=== PATIENT | female | born 1985 | race Caucasian/White ===

== ENCOUNTER 2016-04-20 12:13 | Inpatient (IN) ==
[2016-04-20] MEDS ORDERED: Ringers Solution, Lactated 1,000 ML ONE ×2 (13:08→16:19)
[2016-04-20 13:12] LABS: Bilirubin,Urine Negative (Negative); Blood,Urine Negative (Negative); Clarity,Urine Cloudy (Clear); Color,Urine Dark Yellow (Yellow); Glucose,Urine (UA) Normal (Normal); Ketones,Urine Negative (Negative); Leukocyte Esterase,Urine Moderate (Negative); Nitrite,Urine Negative (Negative); Protein,Urine Trace mg/dL (Neg-Trace); Specific Gravity,Urine 1.021 (1.010-1.025); Urobilinogen,Urine Normal (Normal)
[2016-04-20] MEDS ORDERED: Ringers Solution, Lactated 500 ML IVC ONE (13:14)
[2016-04-20 13:15] LABS: Bacteria,Urine Moderate per hpf (None-Few); Hyaline Casts,Urine None Seen per lpf (None-Few); Squamous Epithelial Cell,Urine Many per lpf (None-Few)
[2016-04-20] MEDS ORDERED: Ringers Solution, Lactated 1,000 ML IVC SCH ×2 (13:15→15:45)
[2016-04-20 13:25] LABS: RBC,Urine 0-3 per hpf (0-3)
--- NOTE | 2016-04-20 14:15 | OB/GYN Progress Note ---
Date of Encounter: 04/20/16 Time of Encounter: 13:11 - Assessment and Plan (1) 33 weeks gestation of Current Visit: Yes Status: Chronic (2) Dichorionic diamniotic twin in third trimester Current Visit: Yes Status: Acute (3) Non-reassuring electronic monitoring tracing Current Visit: No Status: Acute IV hydration, NPO, intrauterine resuscitation. Patient had non reactive NST earlier this week with BPP 8/8 on both twins on 04/18/16. Prolonged monitoring. Subjective - Subjective Principal diagnosis: contractions and decreased movement Interval history: 30 year old G6 P 5-0-0-5 at 33 2/7 weeks presented to labor and delivery complaining of contractions, not very strong, and decreased movement x 2. She denies any vaginal bleeding or leaking fluid. She is being followed by Dr.Nnoli brown and MFM @ [facility]. She has a di/di twin complicated by discordance and abnormal umbilical artery dopplers in twin A. She is due to be seen at [facility] tomorrow. She did receive steroids at [facility] on 04/12 and 04/13 in anticipation of a delivery. Antepartum ROS: contractions, no loss of fluid, no vaginal bleeding, no movement normal Objective - Vital Signs Vital Signs: Intake and Output 04/19/16 04/20/16 04/20/16 23:59 07:59 15:59 Other: Weight 88.5 kg Patient Weight 04/20/16 23:59 Weight 88.5 kg - Exam FHR comments: baseline A 155 with occasional late deceleration noted following contractions baseline B 150 moderate variablity, no decelerations contractions q 3-4 minutes Abdomen: Present: soft, gravid Cervical dilation: closed Cervix effacement: thick - Labs Labs: Abnormal lab results Urine Clarity Cloudy (Clear) A 04/20/16 12:50 Ur Leukocyte Esterase Moderate (Negative) H 04/20/16 12:50 Urine Microscopic WBC 5-15 per hpf (0-3) H 04/20/16 12:50 Ur Squamous Epith Cells Many per lpf (None-Few) H 04/20/16 12:50 Urine Bacteria Moderate per hpf (None-Few) H 04/20/16 12:50 Ur Culture Indicated? YES (NO) A 04/20/16 12:50 - Allied health notes Allied health notes reviewed: nursing
--- NOTE | 2016-04-20 15:31 | OB/GYN History & Physical ---
Date of Encounter: 04/20/16 Time of Encounter: 15:00 Assessment and Plan (1) 33 weeks gestation of Current visit: Yes Status: Chronic (2) Dichorionic diamniotic twin in third trimester Current visit: Yes Status: Acute (3) Non-reassuring electronic monitoring tracing Current visit: No Status: Acute Proceed with section. Informed consent obtained History of Present Illness Chief complaint: contractions HPI: 30 year old G6 P 5-0-0-5 at 33 2/7 weeks presented to labor and delivery complaining of contractions, not very strong, and decreased movement x 2. She denies any vaginal bleeding or leaking fluid. She is being followed by locally and MFM @ [facility]. She has a di/di twin complicated by discordance and abnormal umbilical artery dopplers in twin A. Strip reviewed with Dr. Elis Arguelles and recommends delivery here. Infants were breech and transverse on ultrasound Monday. Past Med Surg Social Fam HX - Past Medical History Source: patient Medical history: no medical history Psychiatric history: no psych history - Past Surgical History Surgical History: no surgical history, other - Social History Smoking Status: Former smoker Smokeless Tobacco Status: No Alcohol use: none Drug use: none - Family History Mother Name: edwar montana Age: 51 Family Member Ethnicity: Non- Living Status: Still Living Hx Family Cardiac Disorders: No Hx Family Respiratory Disorders: No Hx Family Cancer: No Hx Family GI Disorders: No Hx Family Genitourinary Disorders: No Hx Family Endocrine Disorder: No Hx Family Musculoskeletal Disorders: No Hx Family Neuromuscular Disorders: No Hx Family Neurologic Disorders: No Hx Family HEENT Disorders: No Hx Family Autoimmune Disorders: No Hx Family Reproductive Disorders: No Hx Family Psychosocial Disorders: No Hx Family Medical Disorders: Yes (pt's mother had hx blood clots after delivery of child and has had cervical) Obstetrical History - Pregnancies : 6 Para: 5 Livin Medications and Allergies Ferrous Sulfate [Iron] 325 mg PO BIDWM #60 capsule.er 04/12/16 [Rx] Pnv #78/Iron Asp Gly/FA#1/Dha [Prenate Dha Softgel] 1 each PO DAILY #90 capsule 04/12/16 [Rx] Allergies Cinnamon Allergy (Verified 04/20/16 12:44) Swelling of Lip/Tongue/Throat Review of System OB All systems PM: reviewed and no additional remarkable complaints except as stated Exam - Constitutional Constitutional: well developed, well nourished, no acute distress - HEENT HEENT: EOMI, Mucus Membranes Moist - Lungs Respiratory exam: CTAB - Cardiovascular Cardiovascular exam: RRR - Abdomen Abdomen: Present: bowel sounds normal, gravid, non tender - Cervix Dilation: 0 Effacement: 0 Results Abnormal lab results Urine Clarity Cloudy (Clear) A 04/20/16 12:50 Ur Leukocyte Esterase Moderate (Negative) H 04/20/16 12:50 Urine Microscopic WBC 5-15 per hpf (0-3) H 04/20/16 12:50 Ur Squamous Epith Cells Many per lpf (None-Few) H 04/20/16 12:50 Urine Bacteria Moderate per hpf (None-Few) H 04/20/16 12:50 Ur Culture Indicated? YES (NO) A 04/20/16 12:50 All other labs normal. - VTE Reasons for not Prescribing Prophylaxis: Treatment not Indicated - Low risk for VTE
--- NOTE | 2016-04-20 15:33 | Anesthesia Evaluation PreOp ---
Date of Encounter: 04/20/16 Time of Encounter: 15:31 - Past History Planned Operation: csection Cardiac History: Denies any Significant Hx Pulmonary History: Former smoker (1/2 pack per day, quit 7 months ago) [employer] History: Denies Any Significant HX Other Medical History: Denies Any Significant HX Anesthesia History: No Prior Anesthetic Complications, Past Anesthesia (right arm fracture) : Yes (33 plus 2, ) Alcohol Use: none Drug use: none Medications and Allergies Ferrous Sulfate [Iron] 325 mg PO BIDWM #60 capsule.er 04/12/16 [Rx] Pnv #78/Iron Asp Gly/FA#1/Dha [Prenate Dha Softgel] 1 each PO DAILY #90 capsule 04/12/16 [Rx] Allergies Cinnamon Allergy (Verified 04/20/16 12:44) Swelling of Lip/Tongue/Throat - Meds/Allergy Pre-op Review Medications Reviewed: Yes Allergies Reviewed: Yes Beta Blockers on Current Med List: No Anesthesia Exam O2 Sat Height 1.55 m Height 1.55 m Weight 88.5 kg Weight 88.5 kg bp 130/68 hr 97 Height: 61 Weight: 85 NPO (# of Hours): 0800 frosted flakes, 150ml 2 hrs - HEENT Pupil (Motor): Pupils equal Mallampati: II Teeth: Poor dentition Oral Opening: Greater than 3 - [employer] LOC: Oriented [employer] Motor: Normal RUE, Normal LUE, Normal RLE, Normal LLE, Normal Face [employer] Sensory: Normal: RUE, LUE, RLE, LLE, Face - Cardiac Rhythm: Regular Murmur: None JVD: No Carotid Bruit: No - Pulmonary Breath Sounds: bilateral Clear Respiratory Effort: Symmetrical Anesthesia Assess/Plan ASA Score: 2 Modified Sonu Scale for Level of Consciousness: Cooperative, oriented, and tranquil Anesthetic Plan: Regional Monitoring Plan: Standard Monitors Recovery Plan: PACU
[2016-04-20] MEDS ORDERED: Famotidine 20 MG/2 ML VIAL IVP ONE ×2 (15:36→20:10)
[2016-04-20] MEDS ORDERED: Metoclopramide 10 MG/2 ML VIAL IVP ONE (15:36)
[2016-04-20] MEDS ORDERED: Ringers Solution, Lactated 1,000 ML IVC ONE (15:36)
[2016-04-20] MEDS ORDERED: CeFAZolin Pre 2,000 MG/100 ML 2,000 MG/100 ML BAG IVPB ONE (15:36)
[2016-04-20] MEDS ORDERED: *HR* Propofol 200 MG/20 ML VIAL IVP ONE (15:42)
[2016-04-20] MEDS ORDERED: *HR* Morphine Sulfate/PF 5 MG/10 ML AMPUL ONE (15:42)
[2016-04-20] MEDS ORDERED: *HR* FentaNYL (PF) 100 MCG/2 ML VIAL ONE (15:42)
[2016-04-20] MEDS ORDERED: Ondansetron 4 MG/2 ML VIAL ONE (16:05)
[2016-04-20] MEDS ORDERED: *HR* HYDROmorphone (PF) 1 MG/ML SYRINGE ONE (16:05)
[2016-04-20] MEDS ORDERED: Dexamethasone 4 MG/ML VIAL ONE (16:05)
[2016-04-20] MEDS ORDERED: ROPIVACAINE HCL/PF 0.5% 30 ML VIAL ONE (16:11)
[2016-04-20] MEDS ORDERED: Acetaminophen IV 1,000 MG/100 ML INFUS..BTL IVPB ONE (16:13)
[2016-04-20] MEDS ORDERED: *HR* Oxytocin 10 UNIT/ML VIAL IM ONE (16:20)
[2016-04-20] MEDS ORDERED: Oxytocin 20 units/ LR 1000 mL 20 UNIT/1,000 ML BAG IVC ONE (16:39)
[2016-04-20] MEDS ORDERED: Naloxone 0.4 MG/ML INJ IVP PRN ×2 (17:04→20:10)
[2016-04-20] MEDS ORDERED: *HR* HYDROmorphone 20 MG/20 ML PCA IVC PRN ×2 (17:04→20:10)
[2016-04-20] MEDS ORDERED: Ondansetron 4 MG/2 ML VIAL IVP PRN ×3 (17:04→20:10)
[2016-04-20] MEDS ORDERED: *HR* HYDROmorphone (PF) 1 MG/ML SYRINGE IVP PRN (17:10)
--- NOTE | 2016-04-20 17:53 | OB/GYN Procedure Note ---
Section - Date of procedure: 04/20/16 Preop diagnosis: category 3 FHT tracing, breech, other (twin ) Post-op diagnosis: same Procedure: section, primary low transverse Surgeon: Fannie Enriquez Estimated blood loss (cc): 500 Anesthesiologist: Ashley Swanson Procedure Tech: Art Thomas Anesthesia Type: General section complications: none Disposition: L&D Recovery Room Specimens: Placenta, Cord blood, Cord gasses - Infant (s) A Delivery Date: 04/20/16 Delivery Time: 15:48 Presentation: breech Gender: Female Viability: Viable Gram Weight: 1140 kg Shoulder Dystocia: not encountered Specimens collected: cord blood, venous cord gases, arterial cord gases B Delivery Date: 04/20/16 Infant Delivery Time: 15:49 Presentation: transverse lie Gender: Female Viability: Viable Gram Weight: 1680 kg Shoulder Dystocia: not encountered Specimens collected: cord blood, venous cord gases, arterial cord gases Placenta: partial extraction Cord: 3 umbilical vessels - Narrative Narrative: Upon readying patient for section baby B with bradycardia. Patient was betadine prepped and draped and placed under general anesthesia for stat section. Antibiotics were given. SCDs are on and active. Pfannenstiel skin incision is then made and carried through to underlying layer of fascia. The fascia was then incised in the midline and incision extended laterally bluntly. The fascia was tented up and dissected off the rectus muscles sharply. The rectus muscles were in the midline and the peritoneum was tented up and entered sharply with the Metzenbaum scissors. The peritoneal incision was then extended bluntly. The bladder blade was then inserted. A low transverse uterine incision was then made. The A breech was brought to the incision and the was delivered using breech maneuvers and fundal pressure. There was no nuchal cord. Cord was clamped and cut. Infant was handed to waiting nursery staff. Baby B was transverse and internally verted to footling breech and delivered using breech manuevers and flundal pressure. Placentas delivered spontaneously, complete, and intact with three- vessel cords. The uterus was cleared of all clots and debris using moist laparotomy sponge. The uterine incision was then closed using 0 Vicryl in a running locked fashion. A second layer of the same suture was used to obtain excellent hemostasis. The abdomen was then cleared of all clots and debris using copious irrigation. A piece of Interceed was place over the incision and the anterior uterine serosa. The fascial incision was then closed using 0 Vicryl in a running fashion. The skin was closed using 4-0 Vicryl in a subcuticular fashion. Savanah dressing wast then placed. Sponge, lap, and needle counts were correct. Customary instrument count was correct and KUB obtained since instruments were not counted prior to incision. Mother taken to recovery in stable condition. Infants both taken to the nursery in stable condition.
--- NOTE | 2016-04-20 17:57 | Anesthesia Evaluation Post Op ---
Date of Encounter: 04/20/16 Time of Encounter: 17:55 - Vital Signs Vital Signs: bp 143/78 hr 87 rr 18 spo2 98 - Lungs Lungs: Clear Ascult./Percussion - Airway Airway: Non-obstructed - Cardiovascular Regular Rate - Mental Status Mental Status: Alert & Oriented, Answers Appropriately - Pain Pain Scale: 5 - Nausea Vomiting Nausea Vomiting: Not Present - Hydration Hydration: NPO, Muro catheter - Discharge PostOp Status: Transfer Patient to floor
[2016-04-20] MEDS ORDERED: Oxytocin 20 units/ LR 1000 mL 20 UNIT/1,000 ML BAG IV SCH ×2 (20:10)
[2016-04-20] MEDS ORDERED: Acetaminophen 325 MG TABLET PO PRN (20:10)
[2016-04-20] MEDS ORDERED: Rho Immune Globulin 1,500 UNIT SYRINGE IM PRN (20:10)
[2016-04-20] MEDS ORDERED: Simethicone 80 MG TAB.CHEW PO PRN (20:10)
[2016-04-20] MEDS ORDERED: Sennosides 8.6 MG TABLET PO PRN (20:10)
[2016-04-20] MEDS ORDERED: Metoclopramide 10 MG/2 ML VIAL IVP PRN (20:10)
[2016-04-21 05:14] LABS: Basophils % 0.1 %; Hematocrit 20.2 % (35.3-44.9); Hemoglobin 6.1 g/dL (11.5-15.4); Immature Granulocytes % 0.7 % (0-4); Lymphocytes # 1.7 K/mcL (0.6-4.6); Lymphocytes % 7.6 %; Mean Corpuscular HGB Conc 30.2 g/dL (31.6-35.5); Mean Corpuscular Hemoglobin 23.9 pg (28.0-33.3); Mean Corpuscular Volume 79.2 fL (83.0-100.0); Mean Platelet Volume 9.9 fL (9.4-12.4); Monocytes # 1.3 K/mcL (0.0-1.3); Monocytes % 5.8 %; Neutrophils # 18.8 K/mcL (1.6-8.9); Nucleated Red Blood Cells 0.1 /100 WBC (0); Platelet Count 204 K/mcL (140-400); Red Blood Count 2.55 M/mcL (3.82-4.97); Red Cell Distribution Width 16.7 % (11.5-14.5); Segmented Neutrophils % 85.8 %
[2016-04-21] MEDS: Prenatal Vit/FA 1 EACH TABLET PO SCH (08:24)
[2016-04-21] MEDS: Ibuprofen 600 MG TABLET PO PRN ×2 (08:24→19:47)
--- NOTE | 2016-04-21 08:38 | OB/GYN Progress Note ---
Date of Encounter: 04/21/16 Time of Encounter: 08:36 - Assessment and Plan (1) Status post section Current Visit: Yes Status: Acute will give 2 units of blood and check CBC in 4 hrs, switch to PO pain regimen, ambulation encouraged, cont current inpt care. Subjective - Subjective Patient reports: appetite normal, pain poorly controlled (complains of poor control, still on [employer], lochia light, appetite ok, babies [place] and doing well per last report) Objective - Vital Signs Latest vital signs: Vital Signs Temp Pulse Pulse Resp BP Pulse Ox 04/21/16 08:29 98.1 F 109 17 117/77 96 04/21/16 03:15 98.1 F 98 16 104/63 94 L 04/20/16 23:50 97.7 F 90 90 16 108/60 97 04/20/16 22:20 97.7 F 90 90 16 113/59 96 04/20/16 21:05 97.7 F 85 16 111/55 95 04/20/16 20:40 97.7 F 90 88 16 113/59 96 04/20/16 20:00 97.3 F L 55 84 18 123/55 95 Intake and Output 04/20/16 04/21/16 04/21/16 23:59 07:59 15:59 Intake Total 100 / 100 180 / 180 Output Total 325 / 325 950 / 950 450 / 450 Balance -225 / -225 -770 / -770 -450 / -450 Intake: IV Fluids 100 / 100 Ofirmev 1,000 mg In 100 100 / 100 ml @ 400 mls/hr IVPB ONCE ONE Rx#:[id number] Oral 0 / 0 180 / 180 Output: Urine 450 / 450 Emesis 100 / 100 Catheter 325 / 325 850 / 850 Other: Weight 84.7 kg 85.4 kg Patient Weight 04/21/16 23:59 Weight 85.4 kg - Exam Lungs: bilateral: normal Chest: Normal S1, Normal S2 Extremities: Present: normal Abdomen: Present: normal appearance, soft Incision: Present: dressed Uterus: Present: normal, firm - Labs Labs: Laboratory Results - last 24 hr 04/20/16 04/20/16 04/21/16 12:50 23:14 04:53 WBC 21.9 H RBC 2.55 L Hgb 6.1 L Hct 20.2 L MCV 79.2 L MCH 23.9 L MCHC 30.2 L RDW 16.7 H Plt Count 204 MPV 9.9 Immature Gran % 0.7 Seg Neutrophils % 85.8 Lymphocytes % 7.6 Monocytes % 5.8 Eosinophils % 0.0 Basophils % 0.1 Neutrophils # 18.8 H Lymphocytes # 1.7 Monocytes # 1.3 Eosinophils # 0.0 Basophils # 0.0 Nucleated RBCs/100 WBC 0.1 H Urine Color Dark Yellow Urine Clarity Cloudy A Urine pH 7.0 Ur Specific [place] 1.021 Urine Protein Trace Urine Glucose (UA) Normal Urine Ketones Negative Urine Blood Negative Urine Nitrite Negative Urine Bilirubin Negative Urine Urobilinogen Normal Ur Leukocyte Esterase Moderate H Urine Microscopic RBC 0-3 Urine Microscopic WBC 5-15 H Ur Squamous Epith Cells Many H Urine Bacteria Moderate H Hyaline Casts None Seen Ur Culture Indicated? YES A Hep Bs Antigen Nonreactive
[2016-04-21] MEDS ORDERED: *HR* OxyCODONE/APAP 5/325 TABLET PO PRN (09:01)
[2016-04-21] MEDS ORDERED: 0.9 % Sodium Chloride 1,000 ML ONE (09:28)
[2016-04-21] MEDS: *HR* OxyCODONE/APAP 5/325 TABLET PO PRN ×2 (13:59→19:47)
[2016-04-21 20:08] LABS: Basophils % 0.1 %; Eosinophils % 0.1 %; Hematocrit 22.8 % (35.3-44.9); Hemoglobin 7.5 g/dL (11.5-15.4); Immature Granulocytes % 1.2 % (0-4); Lymphocytes # 1.9 K/mcL (0.6-4.6); Lymphocytes % 11.9 %; Mean Corpuscular HGB Conc 32.9 g/dL (31.6-35.5); Mean Corpuscular Hemoglobin 26.5 pg (28.0-33.3); Mean Corpuscular Volume 80.6 fL (83.0-100.0); Mean Platelet Volume 9.2 fL (9.4-12.4); Monocytes # 1.1 K/mcL (0.0-1.3); Monocytes % 7.1 %; Neutrophils # 12.5 K/mcL (1.6-8.9); Nucleated Red Blood Cells 0.3 /100 WBC (0); Platelet Count 176 K/mcL (140-400); Red Blood Count 2.83 M/mcL (3.82-4.97); Segmented Neutrophils % 79.6 %
[2016-04-22] MEDS: *HR* OxyCODONE/APAP 5/325 TABLET PO PRN ×4 (00:19→16:44)
[2016-04-22] MEDS: Ibuprofen 600 MG TABLET PO PRN ×2 (03:15→12:16)
[2016-04-22 06:16] LABS: Basophils % 0.1 %; Eosinophils % 0.1 %; Hematocrit 21.6 % (35.3-44.9); Hemoglobin 6.9 g/dL (11.5-15.4); Immature Granulocytes % 1.5 % (0-4); Lymphocytes # 1.9 K/mcL (0.6-4.6); Lymphocytes % 12.8 %; Mean Corpuscular HGB Conc 31.9 g/dL (31.6-35.5); Mean Corpuscular Hemoglobin 26.1 pg (28.0-33.3); Mean Corpuscular Volume 81.8 fL (83.0-100.0); Mean Platelet Volume 9.2 fL (9.4-12.4); Monocytes # 1.1 K/mcL (0.0-1.3); Monocytes % 7.1 %; Neutrophils # 11.7 K/mcL (1.6-8.9); Nucleated Red Blood Cells 0.3 /100 WBC (0); Platelet Count 179 K/mcL (140-400); Red Blood Count 2.64 M/mcL (3.82-4.97); Red Cell Distribution Width 17.1 % (11.5-14.5); Segmented Neutrophils % 78.4 %
[2016-04-22] MEDS: Prenatal Vit/FA 1 EACH TABLET PO SCH (09:00)
--- NOTE | 2016-04-22 09:18 | Discharge Summary ---
Date of Encounter: 04/22/16 Time of Encounter: 09:16 - Discharge Diagnosis (1) Status post primary low transverse section Priority: Primary Status: Acute Comments: Continue routine /postop care discharge home today pending HGB following blood transfusion follow up in [address] Enriquez for incision check (2) Breast feeding status of mother Priority: Secondary Status: Acute Comments: support and consultation prn (3) anemia Priority: Secondary Status: Acute Comments: blood transfusion infusing at this time repeat cbc 4 hours following transfusion - Discharge Medications Prescriptions: OxyCODONE/APAP 5/325 [Percocet 5/325 MG] 1 each PO Q4HR PRN #30 tablet PRN Reason: Moderate pain 4-6 Ibuprofen [Motrin] 600 mg PO Q6HR PRN #60 tablet PRN Reason: Cramping Ferrous Sulfate 325 mg PO BIDWM #60 tablet Home Medications: Ferrous Sulfate [Iron] 325 mg PO BIDWM #60 capsule.er 04/12/16 [Rx] Pnv #78/Iron Asp Gly/FA#1/Dha [Prenate Dha Softgel] 1 each PO DAILY #90 capsule 04/12/16 [Rx] Breast Pump [BREAST PUMP] 1 each .ROUTE AD #1 each 04/22/16 [Rx] Ferrous Sulfate 325 mg PO BIDWM #60 tablet 04/22/16 [Rx] Ibuprofen [Motrin] 600 mg PO Q6HR PRN #60 tablet 04/22/16 [Rx] OxyCODONE/APAP 5/325 [Percocet 5/325 MG] 1 each PO Q4HR PRN #30 tablet 04/22/16 [Rx] Vit/FA 1 each PO DAILY tablet 04/22/16 [Rx] Allergies/Adverse Reactions: Allergies Cinnamon Allergy (Verified 04/20/16 12:44) Swelling of Lip/Tongue/Throat Data Procedures and tests throughout hospitalization: Laboratory Tests 04/20/16 04/20/16 04/21/16 12:50 23:14 04:53 WBC 21.9 H RBC 2.55 L Hgb 6.1 L Hct 20.2 L MCV 79.2 L MCH 23.9 L MCHC 30.2 L RDW 16.7 H Plt Count 204 MPV 9.9 Immature Gran % 0.7 Seg Neutrophils % 85.8 Lymphocytes % 7.6 Monocytes % 5.8 Eosinophils % 0.0 Basophils % 0.1 Neutrophils # 18.8 H Lymphocytes # 1.7 Monocytes # 1.3 Eosinophils # 0.0 Basophils # 0.0 Nucleated RBCs/100 WBC 0.1 H Urine Color Dark Yellow Urine Clarity Cloudy A Urine pH 7.0 Ur Specific [place] 1.021 Urine Protein Trace Urine Glucose (UA) Normal Urine Ketones Negative Urine Blood Negative Urine Nitrite Negative Urine Bilirubin Negative Urine Urobilinogen Normal Ur Leukocyte Esterase Moderate H Urine Microscopic RBC 0-3 Urine Microscopic WBC 5-15 H Ur Squamous Epith Cells Many H Urine Bacteria Moderate H Hyaline Casts None Seen Ur Culture Indicated? YES A Hep Bs Antigen Nonreactive Blood Type Antibody Screen Crossmatch 04/21/16 04/21/16 04/22/16 09:21 20:01 06:01 WBC 15.8 H 15.0 H RBC 2.83 L 2.64 L Hgb 7.5 L 6.9 L Hct 22.8 L 21.6 L MCV 80.6 L 81.8 L MCH 26.5 L 26.1 L MCHC 32.9 31.9 RDW 17.0 H 17.1 H Plt Count 176 179 MPV 9.2 L 9.2 L Immature Gran % 1.2 1.5 Seg Neutrophils % 79.6 78.4 Lymphocytes % 11.9 12.8 Monocytes % 7.1 7.1 Eosinophils % 0.1 0.1 Basophils % 0.1 0.1 Neutrophils # 12.5 H 11.7 H Lymphocytes # 1.9 1.9 Monocytes # 1.1 1.1 Eosinophils # 0.0 0.0 Basophils # 0.0 0.0 Nucleated RBCs/100 WBC 0.3 H 0.3 H Urine Color Urine Clarity Urine pH Ur Specific [place] Urine Protein Urine Glucose (UA) Urine Ketones Urine Blood Urine Nitrite Urine Bilirubin Urine Urobilinogen Ur Leukocyte Esterase Urine Microscopic RBC Urine Microscopic WBC Ur Squamous Epith Cells Urine Bacteria Hyaline Casts Ur Culture Indicated? Hep Bs Antigen Blood Type O POSITIVE Antibody Screen NEGATIVE Crossmatch See Detail Labs on day of discharge: Labs from last 24 hours 04/22/16 04/21/16 04/21/16 06:01 20:01 09:21 WBC 15.0 H 15.8 H RBC 2.64 L 2.83 L Hgb 6.9 L 7.5 L Hct 21.6 L 22.8 L MCV 81.8 L 80.6 L MCH 26.1 L 26.5 L MCHC 31.9 32.9 RDW 17.1 H 17.0 H Plt Count 179 176 MPV 9.2 L 9.2 L Immature Gran % 1.5 1.2 Seg Neutrophils % 78.4 79.6 Lymphocytes % 12.8 11.9 Monocytes % 7.1 7.1 Eosinophils % 0.1 0.1 Basophils % 0.1 0.1 Neutrophils # 11.7 H 12.5 H Lymphocytes # 1.9 1.9 Monocytes # 1.1 1.1 Eosinophils # 0.0 0.0 Basophils # 0.0 0.0 Nucleated RBCs/100 WBC 0.3 H 0.3 H Blood Type O POSITIVE Antibody Screen NEGATIVE Crossmatch See Detail - Impressions ITS Impressions KUB X-Ray 04/20/16 16:28 IMPRESSION: Tubing projects over soft tissues lateral to the right hip, indeterminate in location. Otherwise no evidence of retained metallic density foreign body within the abdomen. D/ / Ramiro Alarcon MD / Ramiro Alarcon MD Interpreting Provider: Ramiro Alarcon MD Date of admission: 04/20/16 12:13 Primary care physician: PCP NO Consults: 04/20/16 20:10 Consult to German Tutor (W&C) [CONS] Routine Reason For Exam: Reason for SW Consult: twin delivery Discharging clinician: Trisha Borjas Anticipated date of discharge: 04/22/16 - Patient Status Disposition: Home, Self-Care Condition: Good Functional capacity at discharge: independent ambulation - Discharge Instructions Follow Up With: NO,PCP [Primary Care Provider] - Fannie Enriquez DO [Partnered Physician] - - Diet and Activity Activity: increase activity as tolerated Diet: regular diet Hospital Course Reason for admission: other (monitor for nonreassuring NST in office) Delivery: section (Primary for nonreassuring FHR tracing. Cat 3. ) Episiotomy: none Laceration: none Other procedures: none complications: transfusion (4 units total) Discharge diagnosis: delivery [place] baby: twins (females, mother is pumping breast milk. Infants currently at [facility]) Hospital course: oarrs report reviewed prior to prescribing medication. Time Attestation: Total time spent providing and/or coordinating discharge services: Time Spent: Less than 30 minutes - VTE Reasons for not Prescribing Prophylaxis: Treatment not Indicated - Low risk for VTE Documentation of Mechanical Device: Intermittent pneumatic compression device Exam - Constitutional Vitals: Temp Pulse Resp BP Pulse Ox 98.0 F 88 16 118/75 97 04/22/16 08:56 04/22/16 08:56 04/22/16 08:56 04/21/16 19:52 04/22/16 08:56 General appearance IM: A&O X 3, pleasant, answers questions appropriately - Respiratory Respiratory exam: Present: CTAB - Cardiovascular Cardiovascular exam IM: Present: RRR, +S1, +S2 - GI/Abdominal GI/Abdominal exam IM: normal bowel sounds Incision: normal, dry, intact, other (LEAH dressing) - Uterine Tone: Firm Uterus Position: 2 Fingers Below Umbilicus, Midline - Extremities Exam Extremities exam IM: Present: normal capillary refill, normal inspection - Neurological Exam Neurological exam: oriented X3, reflexes normal (light lochia)
[2016-04-22 20:15] LABS: Basophils % 0.2 %; Eosinophils % 0.1 %; Hematocrit 28.3 % (35.3-44.9); Immature Granulocytes % 2.1 % (0-4); Lymphocytes # 1.7 K/mcL (0.6-4.6); Mean Corpuscular HGB Conc 32.2 g/dL (31.6-35.5); Mean Corpuscular Hemoglobin 26.3 pg (28.0-33.3); Mean Corpuscular Volume 81.8 fL (83.0-100.0); Mean Platelet Volume 8.8 fL (9.4-12.4); Monocytes # 0.9 K/mcL (0.0-1.3); Monocytes % 5.7 %; Neutrophils # 13.5 K/mcL (1.6-8.9); Nucleated Red Blood Cells 0.3 /100 WBC (0); Platelet Count 199 K/mcL (140-400); Red Blood Count 3.46 M/mcL (3.82-4.97); Red Cell Distribution Width 16.6 % (11.5-14.5); Segmented Neutrophils % 81.9 %
[2016-04-22 20:30] LABS: Hemoglobin 9.1 g/dL (11.5-15.4)
[2016-04-22 23:49] VITALS: BP 118/73
== END 2016-04-22 21:50 | disposition home or self-care (01) | DRG 540 ==
LOC: 1NENULAB → OBSVTOIN 12:13 → 1NENUOBS 20:07 → UNDODISIN 04-21 21:50
PROVIDERS: ADMIT Obstetrics & Gynecology; ATTEND Obstetrics & Gynecology